=== PATIENT | female | born 1970 | race African-American/Black ===

== ENCOUNTER 2022-08-15 15:04 | Inpatient (IN) ==
[2022-08-15] MEDS ORDERED: ASPIRIN 325 MG TABLET PO STA (16:11)
[2022-08-15] MEDS ORDERED: LABETALOL 100 MG/20 ML VIAL IV STA (16:11)
[2022-08-15 16:22] LABS: Basophils % 0.4 % (0.0-0.8); Eosinophils # 0.1 10*3/uL (0.0-0.87); Hematocrit 39.6 VOL% (35.7-47.0); Hemoglobin 12.8 GM/DL (12.0-16.0); Immature Granulocytes % 0.1 %; Immature Granulocytes Absolute 0.01 #; Lymphocytes # 2.7 10*3/uL (1.4-4.0); Lymphocytes % 39.9 % (21.3-54.2); Mean Corpuscular HGB Conc 32.3 GM/DL (32-36); Mean Corpuscular Volume 89.4 FL (87-102); Mean Platelet Volume 9.4 FL (9.6-12.0); Monocytes # 0.5 10*3/uL (0.11-0.8); Monocytes % 7.6 % (1.7-12.7); Platelet Count 375 T/CUMM (130-400); Red Blood Count 4.43 MC/CUMM (3.8-5.5); Red Cell Distribution Width 15.9 % (9.3-17.3); White Blood Count 6.81 T/CUMM (4-12)
[2022-08-15 16:29] LABS: INR 0.9; Partial Thromboplastin Time 26.8 SECS (23.7-32.9)
[2022-08-15 16:38] LABS: Alanine Aminotransferase 17 U/L (13-56); Albumin 3.5 G/DL (3.4-5.0); Alkaline Phosphatase 116 U/L (45-117); Aspartate Amino Transferase 10 U/L (0-37); Bilirubin,Total < 0.39 MG/DL (0.20-1.00); Blood Urea Nitrogen 19 MG/DL (7-18); Calcium 9.5 MG/DL (8.5-10.1); Carbon Dioxide 26 MMOL/L (21-32); Chloride 108 MMOL/L (98-107); Glucose 123 MG/DL (74-106); Osmolality,Calculated 281.4 MOS/KG (273-304); Potassium 3.6 MMOL/L (3.5-5.1); Sodium 140 MMOL/L (136-145); Total Protein 7.8 G/DL (6.4-8.2)
[2022-08-15 17:23] LABS: Bacteria,Urine Occasional /HPF (Few); Hyaline Casts,Urine 1 /LPF (0-3); Mucus,Urine Occasional /LPF (Occasional); RBC,Urine 2 /HPF (0-4); Squamous Epithelial Cell,Urine Occasional /HPF (0-10)
[2022-08-15 17:25] LABS: Bilirubin,Urine Negative (Negative); Blood, Urine Negative (Negative); Glucose,Urine (UA) Negative (Negative); Ketones,Urine Negative (Negative); Nitrite,Urine Negative (Negative); Protein,Urine Negative (Negative); Urine Appearance Clear (Clear); Urine Color Yellow (Yellow); Urine Urobilinogen 0.2 eU/dL (<2.0)
[2022-08-15 17:52] LABS: Barbiturates Screen,Urine Negative (Negative); Benzodiazepines Screen,Urine Negative (Negative); Cannabinoid Screen,Urine Positive (Negative); Opiate Screen,Urine Negative (Negative); Phencyclidine Screen,Urine Negative (Negative)
[2022-08-15] MEDS ORDERED: ACETAMINOPHEN 325 MG TABLET PO PRN (19:51)
[2022-08-15] MEDS ORDERED: ONDANSETRON 4 MG/2 ML VIAL IV PRN (19:51)
[2022-08-15] MEDS ORDERED: LORazepam 2 MG/1 ML VIAL IV PRN (19:55)
[2022-08-15] MEDS ORDERED: THIAMINE INJ 100 MG, FOLIC ACID INJ 1 MG, MULTIVITAMIN INJ 10 ML in SODIUM CHLORIDE 0.9... IV SCH (20:00)
[2022-08-15] MEDS: ATORVASTATIN 40 MG TABLET PO SCH ×2 (22:36→23:25)
[2022-08-15] MEDS: 1: THIAMINE INJ 100 MG, FOLIC ACID INJ 1 MG, MULTIVITAMIN INJ 10 ML in SODIUM CHLORIDE 0 IV SCH (23:25)
[2022-08-15] MEDS: ENOXAPARIN 40 MG/0.4 ML SYRINGE SUBCUT SCH (23:25)
[2022-08-16] MEDS: hydrALAZINE 20 MG/1 ML VIAL IV PRN ×2 (00:08→06:07)
[2022-08-16 00:44] LABS: Basophils % 0.3 % (0.0-0.8); Eosinophils # 0.1 10*3/uL (0.0-0.87); Hematocrit 39.6 VOL% (35.7-47.0); Hemoglobin 13.1 GM/DL (12.0-16.0); Immature Granulocytes % 0.2 %; Immature Granulocytes Absolute 0.01 #; Lymphocytes # 2.1 10*3/uL (1.4-4.0); Lymphocytes % 35.8 % (21.3-54.2); Mean Corpuscular HGB Conc 33.1 GM/DL (32-36); Mean Corpuscular Volume 90.4 FL (87-102); Mean Platelet Volume 9.3 FL (9.6-12.0); Monocytes # 0.5 10*3/uL (0.11-0.8); Monocytes % 7.9 % (1.7-12.7); Neutrophils % 54.8 % (38.7-73.9); Platelet Count 340 T/CUMM (130-400); Red Blood Count 4.38 MC/CUMM (3.8-5.5); Red Cell Distribution Width 15.8 % (9.3-17.3); White Blood Count 5.98 T/CUMM (4-12)
[2022-08-16 01:33] LABS: Albumin 3.3 G/DL (3.4-5.0); Bilirubin,Total 0.4 MG/DL (0.20-1.00); Calcium 9.4 MG/DL (8.5-10.1); Osmolality,Calculated 282.4 MOS/KG (273-304); Potassium 3.6 MMOL/L (3.5-5.1); Risk Ratio 5.97; Thyroid Stimulating Hormone 2.13 uIU/ml (0.358-3.74); Total Protein 7.5 G/DL (6.4-8.2); VLDL Cholesterol 28.2 MG/DL
[2022-08-16] MEDS ORDERED: hydrALAZINE 20 MG/1 ML VIAL IV ONE (07:56)
[2022-08-16] MEDS: ASPIRIN 325 MG TABLET PO SCH (08:06)
[2022-08-16] MEDS: PANTOPRAZOLE 40 MG TABLET PO SCH (08:07)
[2022-08-16] MEDS: NICOTINE 21 MG/24 HR PATCH TRANSDERM SCH (08:08)
[2022-08-16] MEDS ORDERED: KETOROLAC 60 MG/2 ML VIAL IM ONE (11:00)
[2022-08-16] MEDS: 1: THIAMINE INJ 100 MG, FOLIC ACID INJ 1 MG, MULTIVITAMIN INJ 10 ML in SODIUM CHLORIDE 0 IV SCH (15:50)
[2022-08-16] MEDS: ATORVASTATIN 40 MG TABLET PO SCH (20:57)
[2022-08-16] MEDS: ENOXAPARIN 40 MG/0.4 ML SYRINGE SUBCUT SCH (20:58)
[2022-08-17] MEDS: hydrALAZINE 20 MG/1 ML VIAL IV PRN (01:37)
[2022-08-17] MEDS: 1: THIAMINE INJ 100 MG, FOLIC ACID INJ 1 MG, MULTIVITAMIN INJ 10 ML in SODIUM CHLORIDE 0 IV SCH (01:40)
[2022-08-17 05:18] LABS: Basophils % 0.4 % (0.0-0.8); Eosinophils # 0.1 10*3/uL (0.0-0.87); Eosinophils % 1.7 % (0.00-10.9); Hematocrit 38.3 VOL% (35.7-47.0); Hemoglobin 12.8 GM/DL (12.0-16.0); Immature Granulocytes % 0.2 %; Immature Granulocytes Absolute 0.01 #; Lymphocytes # 2.1 10*3/uL (1.4-4.0); Lymphocytes % 43.1 % (21.3-54.2); Mean Corpuscular HGB Conc 33.4 GM/DL (32-36); Mean Corpuscular Volume 88.7 FL (87-102); Mean Platelet Volume 9.4 FL (9.6-12.0); Monocytes # 0.5 10*3/uL (0.11-0.8); Monocytes % 10.9 % (1.7-12.7); Neutrophils % 43.7 % (38.7-73.9); Platelet Count 362 T/CUMM (130-400); Red Blood Count 4.32 MC/CUMM (3.8-5.5); Red Cell Distribution Width 15.4 % (9.3-17.3); White Blood Count 4.78 T/CUMM (4-12)
[2022-08-17 05:46] LABS: Calcium 9.4 MG/DL (8.5-10.1); Osmolality,Calculated 276.7 MOS/KG (273-304); Potassium 3.3 MMOL/L (3.5-5.1)
[2022-08-17 08:30] VITALS: BP 174/104
[2022-08-17] MEDS ORDERED: amLODIPine 10 MG TABLET PO SCH (09:00)
[2022-08-17] MEDS: NICOTINE 21 MG/24 HR PATCH TRANSDERM SCH (09:23)
[2022-08-17] MEDS: ASPIRIN 325 MG TABLET PO SCH (09:23)
[2022-08-17] MEDS: PANTOPRAZOLE 40 MG TABLET PO SCH (09:24)
== END 2022-08-17 11:55 | disposition home or self-care (01) | DRG 64 ==
LOC: N.ED 15:04 → N.EDINP 19:50 → SUATTDRO 19:50 → N.2E 20:59
PROVIDERS: ADMIT Internal Medicine; ATTEND Emergency Medicine